=== PATIENT | female | born 1995 | race Caucasian/White ===

== ENCOUNTER 2019-06-29 03:41 | Emergency (ER) | payer MEDICARE, MEDICAID ==
[~2019-06-29] VITALS: Ht 170.2 cm; Wt 97.5 kg
[2019-06-29] MEDS ORDERED: CLOZ100T2 PO (05:14)
[2019-06-29] MEDS ORDERED: LORA-674 PO (05:14)
[2019-06-29] MEDS ORDERED: CALC-333 PO (05:14)
[2019-06-29] MEDS ORDERED: METF10004 PO (05:14)
[2019-06-29] MEDS ORDERED: SENN8.6T28 PO (05:14)
[2019-06-29] MEDS ORDERED: SUCR1SS PO (05:14)
[2019-06-29] MEDS ORDERED: DOCU100C16 PO (05:14)
[2019-06-29] MEDS ORDERED: VITA250T4 PO (05:14)
[2019-06-29] MEDS ORDERED: SYNT112T2 PO (05:14)
[2019-06-29] MEDS ORDERED: FERR1TAB8 PO (05:14)
[2019-06-29] MEDS ORDERED: GIAN1TAB PO (05:14)
[2019-06-29] MEDS ORDERED: PANT40TA3 PO (05:14)
[2019-06-29] MEDS ORDERED: JANU100T PO (05:14)
[2019-06-29] MEDS ORDERED: HALO10TA20 PO ×2 (05:14→05:24)
[2019-06-29] MEDS ORDERED: GLIM2TAB29 PO (05:14)
[2019-06-29] MEDS ORDERED: [UNRECOGNIZED DRUG - CODE] PO (05:24)
[2019-06-29] MEDS ORDERED: ACET-907 PO (05:24)
[2019-06-29] MEDS ORDERED: HYDR50TA70 PO (05:24)
[2019-06-29] MEDS ORDERED: ONDA4TAB6 PO (05:24)
[2019-06-29] MEDS ORDERED: GLUT40GE PO (05:24)
[2019-06-29] MEDS ORDERED: MYLASSUD PO (05:24)
[2019-06-29] MEDS ORDERED: LORA1TAB12 PO (05:24)
[2019-06-29] MEDS ORDERED: IBUP1TAB7 PO (05:24)
[2019-06-29] MEDS ORDERED: ARTIDRO2 OU (05:24)
[2019-06-29] MEDS ORDERED: LEVOTHYROXINE 112MCG TABLET (0.112MG) PO ONE (10:45)
[2019-06-29] MEDS ORDERED: FERROUS SULFATE 325MG TAB PO ONE (12:00)
[2019-06-29] MEDS ORDERED: LORATADINE 10 MG TAB PO ONE (12:00)
[2019-06-29] MEDS ORDERED: PANTOPRAZOLE 40MG TAB (PROTONIX) PO ONE (12:00)
[2019-06-29] MEDS ORDERED: SITagliptin 50 MG TAB (JANUVIA) PO ONE (12:00)
[2019-06-29] MEDS ORDERED: metFORMIN (GLUCOPHAGE) 1000 MG TABLET PO ONE (12:00)
[2019-06-29] MEDS ORDERED: ASCORBIC ACID 250 MG TAB PO ONE (12:00)
[2019-06-29] MEDS ORDERED: GLIMEPIRIDE 2 MG TAB PO ONE (12:00)
[2019-06-29] MEDS: CALCIUM CARBONATE 500 MG CHEW U/D PO ONE ×2 (12:35→12:40)
[2019-06-29] MEDS: DOCUSATE SODIUM 100 MG CAP PO ONE ×2 (12:35→12:40)
[2019-06-29] MEDS: SUCRALFATE SUSP 1GM/10ML UD PO ONE ×2 (12:36→12:39)
[2019-06-29] MEDS ORDERED: diphenhydrAMINE INJ 50MG/ML VIAL (J1200) IM ONE (16:45)
[2019-06-29] MEDS ORDERED: HALOPERIDOL 5 MG/ML VIAL (J1630) IM ONE (16:45)
[2019-06-29] MEDS ORDERED: HALOPERIDOL 5 MG/ML VIAL (J1630) As Ordered ONE (16:52)
[2019-06-29 19:42] VITALS: BP 126/77
== END 2019-06-29 19:51 | disposition home or self-care (01) ==
LOC: M ED 03:41
DX: F32.9 Major depressive disorder, single episode, unspecified (principal); T14.91XA Suicide attempt, initial encounter; R45.851 Suicidal ideations; E11.9 Type 2 diabetes mellitus without complications; Z79.84 Long term (current) use of oral hypoglycemic drugs; Z79.899 Other long term (current) drug therapy
CPT/HCPCS: 96372; 99285; J1200; J1630